=== PATIENT | female | born 1970 | race Caucasian/White ===

== ENCOUNTER → 2024-10-26 | Day surgery (SDC) | payer MEDICAID ==
[~2024-10-26] MED LIST: CHOL100022 PO; FAMO-135 PO; IBUP-2029 PO; LIDOCAINE HCL 1% 10 MG/ML 10ML VIAL ONE; MECL-299 PO; SODIUM BICARBONATE 4% 2.4MEQ/5ML VIAL IV ONE
== END | disposition home or self-care (01) ==
LOC: RAD 10:40
PROVIDERS: ATTEND Surgery Surgical Oncology
DX: R92.8 Other abnormal and inconclusive findings on diagnostic imaging of breast (principal); Z79.899 Other long term (current) drug therapy; Z98.890 Other specified postprocedural states
CPT/HCPCS: 19281; 19282; J2003; J3490; A4648

== ENCOUNTER → 2024-10-27 | Day surgery (SDC) | payer MEDICAID ==
[~2024-10-27] VITALS: Ht 160 cm; Wt 88.9 kg
[~2024-10-27] MED LIST changes: +BUPIVACAINE HCL/PF 0.5% (5MG/ML) 10ML ONE; +DEXAMETHASONE 4MG/ML 1ML VIAL ONE; +FENTANYL CITRATE/PF 50MCG/ML 2ML VIAL ONE; +GLYCOPYRROLATE 0.2 MG/ML 2ML VIAL IV PRN; +GLYCOPYRROLATE 0.2 MG/ML 2ML VIAL ONE; +HYDRALAZINE 20MG/ML VIAL IV PRN; +HYDROMORPHONE HCL/PF 1MG/ML INJ IV PRN; +KETAMINE HCL 50 MG/ML 10ML ONE; +LABETALOL 5MG/ML 4ML INJ IV PRN; -LIDOCAINE HCL 1% 10 MG/ML 10ML VIAL ONE; +LIDOCAINE HCL/EPINEPHRINE 1%-EPI 1:100,000 20ML VIAL ONE; +METHYLENE BLUE 50MG/10ML AMP IV ONE; +MIDAZOLAM HCL 2 MG/2 ML VIAL ONE; +ONDANSETRON HCL 4MG/2ML INJ ONE; +PROPOFOL 10MG/ML 100ML 100 ML IV ONE; +SKIN ADHESIVE 0.7 GM EA TOP ONE; -SODIUM BICARBONATE 4% 2.4MEQ/5ML VIAL IV ONE
[2024-10-27] MEDS: IPRATROPIUM/ALBUTEROL 0.5-3(2.5)MG/3ML NEB HHN NR (08:30)
[2024-10-27 08:33] VITALS: PULSE 76; RESP 16; O2SAT 96
[2024-10-27] MEDS: SODIUM CHLORIDE 0.9% 1,000 ML IV SCH (08:50)
[2024-10-27] MEDS: ONDANSETRON HCL 4MG/2ML INJ IV PRN (12:24)
[2024-10-27 12:25] VITALS: TEMP 97
[2024-10-27] MEDS: ACETAMINOPHEN 325MG TABLET PO NR (12:25)
== END | disposition home or self-care (01) ==
LOC: OR 07:14
PROVIDERS: ATTEND Surgery Surgical Oncology
DX: N60.82 Other benign mammary dysplasias of left breast (principal); E78.5 Hyperlipidemia, unspecified; K21.9 Gastro-esophageal reflux disease without esophagitis; Z79.899 Other long term (current) drug therapy; Z98.890 Other specified postprocedural states
CPT/HCPCS: 19125; 82962; 88305; 76098; 94640; J3010; J0665; J1100; J3490 ×2; J2004; Q9968; J2250; J2405; J2704